=== PATIENT | male | born 1990 | race Two or more races ===

== ENCOUNTER 2016-10-08 19:00 | Emergency (ER) | payer OTHER ==
[~2016-10-08] VITALS: Ht 175.3 cm; Wt 101.4 kg
[2016-10-08 19:10] VITALS: BP 130/83
[2016-10-08] MEDS ORDERED: TdaP Vaccine 0.5ml Syr IM ONE (19:30)
[2016-10-08] MEDS ORDERED: Surgicel 4in x 8in TOPIC ONE (19:30)
[2016-10-08] MEDS ORDERED: IBUPROFEN600 MG ORAL (20:08)
[2016-10-08 20:55] VITALS: BP 127/81
--- NOTE | 2016-10-09 13:09 | Emergency Room Report ---
History of Present Illness General Chief Complaint: Laceration Source: Patient Present Illness HPI The patient is a 26-year-old male presenting for a laceration to the left thumb which occurred today at work. 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 The patient noticed immediate bleeding to the thumb. The patient cleaned the area and applied compression to stop the bleeding. Pain is described as a 6/10 dull ache it does not radiate from the end of the thumb. Pain is worse with touch. He denies any other injury. He is unsure of last tetanus shot. He denies any other symptoms including nausea, vomiting, fever, chills, dizziness Allergies: Coded Allergies: No Known Allergies (Unverified , 10/08/16) Patient History Past Medical History: see triage record Pertinent Family History: none Reviewed Nursing Documentation: PMH: Agreed, PSxH: Agreed Nursing Documentation-PMH Past Medical History: No Stated History Review of Systems All Other Systems: negative except mentioned in HPI Physical Exam Vital Signs Date Time Temp Pulse Resp B/P Pulse Ox O2 Delivery O2 Flow Rate FiO2 10/08/16 19:03 98.1 98 18 130/83 99 Room Air Sp02 EP Interpretation: reviewed, normal General Appearance: no apparent distress, alert, GCS 15, non-toxic Head: normocephalic, atraumatic Eyes: bilateral eye PERRL, bilateral eye normal inspection ENT: hearing grossly normal, normal pharynx, no angioedema, normal voice Musculoskeletal: back normal, gait/station normal, normal range of motion, tender - L distal thumb Neurologic: alert, oriented x3, responsive, motor strength/tone normal, sensory intact, speech normal Psychiatric: judgement/insight normal, memory normal, mood/affect normal, no suicidal/homicidal ideation Skin: no rash, normal turgor, laceration - skin avulsion of distal L thumb with bleeding Lymphatic: no adenopathy Medical Decision Making PA Attestation Dr. Pena is my supervising physician. Patient management was discussed with my supervising physician Diagnostic Impression: Primary Impression: Avulsion of skin of finger Qualified Codes: S61.209A - Unspecified open wound of unspecified finger without damage to nail, initial encounter ER Course The patient is a 26-year-old male presenting for a laceration to the left thumb which occurred today at work Ddx considered include but not limited to fracture, tendon/ligament injury, avulsion, nerve damage PE: vitals WNL. NAD skin avulsion of distal L thumb with bleeding. Nail uninvolved. SILT. Full AROM of IPJ. The wound is copiously irrigated with normal saline and cleaned with Betadine. Surgicel was placed to stop the bleeding and the wound is dressed with sterile dressing. The patient is given a tetanus shot. The patient will be discharged home and is advised needs to followup with workers compensation. Patient is given time off of work. ER precautions are given Last Vital Signs Date Time Temp Pulse Resp B/P Pulse Ox O2 Delivery O2 Flow Rate FiO2 10/08/16 20:55 98.1 86 18 130/83 99 Room Air Status: improved Disposition: HOME, SELF-CARE Condition: Improved Scripts Ibuprofen* (MOTRIN*) 600 Mg Tablet 600 MG ORAL Q8H Y for For Pain, #30 TAB 0 Refills Prov: NAVEEN CERVANTES 10/08/16 Patient Instructions: Nonsutured Laceration Care Additional Instructions: I discussed my findings with the patient. All questions and concerns have been answered. Treatment and medication compliance have been addressed. I advised the patient that they need to follow up with PMD in 3-5 days. Return to ED if symptoms worsen, new symptoms arise, or if needed for any reason. Patient verbalized understanding of discharge instructions. The patient is to followup with workers compensation as discussed NAVEEN CERVANTES Oct 09, 2016 13:09
== END 2016-10-08 20:55 | disposition home or self-care (01) ==
LOC: EMR 19:46
DX: S61.209A Unspecified open wound of unspecified finger without damage to nail, initial encounter (principal); Z23 Encounter for immunization; W26.0XXA Contact with knife, initial encounter; Y92.59 Other trade areas as the place of occurrence of the external cause; Y99.0 Civilian activity done for income or pay
CPT/HCPCS: 90471; 90715; 96372; 99283